=== PATIENT | female | born 1995 | race Caucasian/White ===

== ENCOUNTER 2016-12-02 16:57 | Emergency (ER) | payer OTHER ==
[~2016-12-02] VITALS: Ht 180.3 cm; Wt 99.8 kg
--- NOTE | 2016-12-02 17:08 | ED PSYCHIATRIC COMPLAINT ---
History of Present Illness General Chief Complaint: Psychiatric Related Complaint Stated Complaint: +SI, DETOX FROM HEROINE/BENZO/CRACK Source: patient Exam Limitations: no limitations Vital Signs & Intake/Output Vital Signs & Intake/Output Vital Signs Date Time Temp Pulse Resp B/P B/P Pulse O2 O2 Flow FiO2 Mean Ox Delivery Rate 12/03 1001 97.0 88 20 109/49 Room Air 12/03 0643 96.4 62 18 102/49 99 Room Air 12/03 0137 96.5 87 18 127/65 97 Room Air 12/02 2238 96.7 89 18 140/68 98 Room Air 12/02 1939 84 137/69 12/02 1702 96.1 93 20 135/69 100 Room Air ED Intake and Output 12/03 0000 12/02 1200 Intake Total Output Total 1 Balance -1 Output, Urine 1 Patient 220 lb Weight Weight Estimated Measurement Method Allergies Coded Allergies: No Known Allergies (12/02/16) Reconcile Medications Alprazolam 1 MG TABLET 1 TAB PO TIDPRN ANXIETY (Reported) Estradiol 2 MG TABLET 1 TAB PO TID MENTAL HEALTH (Reported) Fluoxetine HCl (Prozac) 10 MG CAPSULE 3 CAP PO DAILY MENTAL HEALTH (Reported) Leuprolide Acetate (Lupron Depot) 11.25 MG SYRINGEKIT 1 IM EVERY 3 MONTHS CONTROL (Reported) Triage Note: PT TO ED REQUESTING DETOX FROM HEROIN, CRACK AND XANAX. LAST USE OF HEROIN WAS LAST NIGHT, 1 BAG PER PT. TRACK DE LA TORRE NOTED ON B/L ARMS. ADMITS TO OCCASIONAL ETOH USE. STATES SI BY OVERDOSING ON PILLS "OR ANYWAY I CAN ". CALM/COOPERATIVE, FORTH COMING WITH INFORMATION. DENIES HI. Triage Nurses Notes Reviewed? yes Onset: Abrupt Duration: day(s): (FEW) Timing: recent history Severity: mild, moderate Associated Symptoms: anxiety, suicidal ideation : No Patient currently breastfeeds: No HPI: This is a very pleasant 21 year old transgender female with history of recent significant drug abuse who presents to the ED feeling suicidal with plan to overdose on drugs or to hang herself. In the last 6 weeks she has been using lina, crack and xanax. 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 No thoughts of harming anyone else. Denies any alcohol abuse. History of anxiety and depression, on prozac. She is currently living with a girl that she uses with. (DB GARCIA,JLUIS) Past History Travel History Traveled to [place] past 21 day No Medical History Any Pertinent Medical History? see below for history Psychiatric: anxiety, depression, TRANSGENDER Surgical History Surgical History: non-contributory Psychosocial History What is your primary language Nepali Tobacco Use: Current Daily Use Daily Tobacco Use Amount/Type: => 5 Cigarettes daily ETOH Use: occasional use Illicit Drug Use: heroin, benzodiazepines, crack Family History Hx Contributory? No (JLUIS ACE MD) Review of Systems Review of Systems Constitutional: Denies: chills, fever. EENTM: Reports: no symptoms. Respiratory: Denies: cough. Cardiovascular: Denies: chest pain, palpitations. GI: Denies: abdominal pain. Genitourinary: Reports: no symptoms. Musculoskeletal: Reports: no symptoms. Skin: Reports: no symptoms. Neurological/Psychological: Reports: anxiety, depressed, emotional problems. Hematologic/Endocrine: Denies: bruising, bleeding, polyuria, polydipsia. Immunologic/Allergic: Reports: no symptoms. All Other Systems: Reviewed and Negative (JLUIS ACE MD) Physical Exam Physical Exam General Appearance: well developed/nourished, alert, awake, anxious, mild distress Head: atraumatic, normal appearance Eyes: Bilateral: normal appearance, PERRL, EOMI. Ears, Nose, Throat: normal pharynx, hearing grossly normal Neck: normal inspection, supple, full range of motion Respiratory: normal breath sounds, chest non-tender, no respiratory distress Cardiovascular: regular rate/rhythm Neurological/Psychiatric: no motor/sensory deficits, awake, alert, anxious Appearance/Memory/Insight: appropriate insight, disheveled Behavoir/Eye Contact/Speech: cooperative, good eye contact Thoughts/Hallucinations: no apparent hallucination SAD PERSONS SAD PERSONS Response Value Depression/Hopelessness? yes 2 Previous Attempts/Psych Care yes 1 Excessive Ethanol/Drug Use? yes 1 Rational Thinking Loss? yes 2 Single//? yes 1 Organized/Serious Attempt yes 2 Social Support? has no support 1 Stated Future Intent? yes 2 Total 12 SAD PERSONS Done? yes (JLUIS ACE MD) Progress Differential Diagnosis: POLYSUBSTANCE DRUG ABUSE, SUICIDAL IDEATION, DEPRESSION, ANXIETY Plan of Care: Orders Procedure Date/time Status Regular Diet 05/11 B Active Add-on Test (ER Only) 12/03 1739 Active HIV (Reflex to HIVCQ) 12/02 174 Complete HEPATITIS PANEL 12/03 1739 Complete Continuous Observation Monitor 12/02 173 Active HUMAN BETA HCG SCREEN 12/03 1707 Complete COMPREHENSIVE METABOLIC PANEL 12/03 1707 Complete CBC WITHOUT DIFFERENTIAL 12/03 1707 Complete URINE DRUGS OF ABUSE 12/02 1706 Complete ED CRISIS PSYCH CONSULT 12/02 1706 Active Current Medications Sig/Jostin Start time Last Medication Dose Stop Time Status Admin Divalproex Sodium 1,000 MG BID 12/02 2199 CAN (Depakote) Estradiol 2 MG TID 12/02 2199 UNVr 12/03 (Estrace) 1003 Ibuprofen 800 MG Q6P PRN 12/02 1929 AC 12/03 (Motrin) 120 Ondansetron HCl 4 MG Q4-6 PRN PRN 12/02 1929 AC 12/03 (Zofran) 1206 Laboratory Tests 12/02/16 1741: Urine Opiates Screen > 4000.00 H, Methadone Screen > 735 H, Barbiturate Screen 61, Ur Phencyclidine Scrn < 6.00, Amphetamines Screen < 100, U Benzodiazepines Scrn 331 H, Urine Cocaine Screen > 1000 H, Urine Cannabis Screen > 80.00 H 12/02/161739: Anion Gap 13, Estimated GFR > 60, BUN/Creatinine Ratio 8.9, Glucose 89, Calcium 9.5, Total Bilirubin 0.5, AST 17, ALT 34, Alkaline Phosphatase 74, Total Protein 8.9 H, Albumin 4.3, Globulin 4.6 H, Albumin/Globulin Ratio 0.9 L, Total Beta HCG NEGATIVE, CBC w Diff NO MAN DIFF REQ, RBC 4.69, MCV 78.3 L, MCH 26.5 L, RDW 14.2, MPV 9.6, Gran % 52.7, Lymphocytes % 32.8, Monocytes % 8.4, Eosinophils % 5.6 H, Basophils % 0.5, Absolute Granulocytes 3.3, Absolute Lymphocytes 2.1, Absolute Monocytes 0.5, Absolute Eosinophils 0.4, Absolute Basophils 0, PUBS MCHC 33.8, Hepatitis A IgM Ab NONREACTIVE, Hep Bs Antigen NONREACTIVE, Hep B Core IgM Ab Conf NONREACTIVE, Hepatitis C Antibody NONREACTIVE, HIV 1&2 Ab Western Blot NONREACTIVE 05/10/17 1707: Urine Test Cancelled Hand-Off Endorsed To: JUSTIN GARCIA,RENE Marrero Endorsed Time: 2300 Pending: consult (CRISIS INPATIENT BED) (JLUIS ACE MD) Hand-Off Endorsed To: TRIXIE GARCIA,KIRK Clifton Endorsed Time: 0700 Pending: consult (JUSTIN GARCIA,RENE Marrero) Comments: 12/03/2016 2:05:09 PM patient signed out to 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 Patient is being transferred to the [facility] for care. (TRIXIE GARCIA,KIRK Clifton) Departure Departure Disposition: STILL A PATIENT Condition: Stable Clinical Impression Primary Impression: Polysubstance abuse Departure Forms: Customer Survey General Discharge Information (JLUIS ACE MD)
[2016-12-02] MEDS ORDERED: ESTRADIOL2 M1 PO (17:47)
[2016-12-02] MEDS ORDERED: ALPRAZOLAM1 M2 PO (17:47)
[2016-12-02] MEDS ORDERED: LUPRON DEPOT11.25 M2 IM (17:49)
[2016-12-02] MEDS ORDERED: PROZAC10 M1 PO (17:50)
[2016-12-02 17:54] LABS: ABSOLUTE BASOPHIL COUNT 0 /CUMM (0.0-0.2); ABSOLUTE EOSINOPHIL COUNT 0.4 /CUMM (0.0-0.7); ABSOLUTE GRANULOCYTE CT 3.3 /CUMM (1.4-6.5); ABSOLUTE LYMPH COUNT 2.1 /CUMM (1.2-3.4); ABSOLUTE MONOCYTE COUNT 0.5 /CUMM (0.10-0.60); BASOPHIL % 0.5 % (0.0-2.0); EOSINOPHIL % 5.6 % (0-5); GRANULOCYTE % 52.7 % (42.2-75.2); HEMATOCRIT 36.7 % (37-47); MEAN CORPUSCULAR HGB 26.5 PG (27.0-31.0); MEAN CORPUSCULAR HGB CONC 33.8 G/DL (33.0-37.0); MEAN CORPUSCULAR VOLUME 78.3 FL (81.0-99.0); MEAN PLATELET VOLUME 9.6 FL (7.4-10.4); PLATELET COUNT 253 /CUMM (130-400); RBC DISTRIBUTION WIDTH 14.2 % (11.5-14.5); RED BLOOD CELL CT 4.69 /CUMM (4.20-5.40); WHITE BLOOD CELL COUNT 6.3 /CUMM (4.8-10.8)
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
[2016-12-03 14:20] VITALS: BP 114/72
== END 2016-12-03 16:44 | disposition other institution (70) ==
LOC: ERH 16:57
PROVIDERS: Emergency Medicine
DX: F11.10 Opioid abuse, uncomplicated (principal); F14.10 Cocaine abuse, uncomplicated; F13.10 Sedative, hypnotic or anxiolytic abuse, uncomplicated; F17.210 Nicotine dependence, cigarettes, uncomplicated
CPT/HCPCS: 80307; 81025; 87389; G0463; J3101

== ENCOUNTER 2017-08-18 12:41 | Inpatient (IN) | payer OTHER ==
[~2017-08-18] VITALS: Ht 182.9 cm; Wt 88.5 kg
[~2017-08-18 12:41] MED LIST: ALPRAZOLAM1 M2 PO; ESTRADIOL2 M1 PO; LUPRON DEPOT11.25 M2 IM; PROZAC10 M1 PO
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
[2017-08-18 14:20] LABS: ABSOLUTE BASOPHIL COUNT 0 /CUMM (0.0-0.2); ABSOLUTE EOSINOPHIL COUNT 0.1 /CUMM (0.0-0.7); ABSOLUTE GRANULOCYTE CT 5.8 /CUMM (1.4-6.5); ABSOLUTE MONOCYTE COUNT 0.5 /CUMM (0.10-0.60); BASOPHIL % 0.1 % (0.0-2.0); EOSINOPHIL % 0.7 % (0-5); MEAN CORPUSCULAR HGB 28.2 PG (27.0-31.0); MEAN CORPUSCULAR HGB CONC 33.7 G/DL (33.0-37.0); MEAN CORPUSCULAR VOLUME 83.8 FL (81.0-99.0); MEAN PLATELET VOLUME 8.9 FL (7.4-10.4); PLATELET COUNT 254 /CUMM (130-400); RBC DISTRIBUTION WIDTH 12.3 % (11.5-14.5); RED BLOOD CELL CT 4.66 /CUMM (4.20-5.40); WHITE BLOOD CELL COUNT 7.4 /CUMM (4.8-10.8)
[2017-08-18 14:22] LABS: GRANULOCYTE % 79.1 % (42.2-75.2)
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
[2017-08-18] MEDS ORDERED: FLUOXETINE HCL40 M1 PO (19:31)
[2017-08-18] MEDS ORDERED: CLONIDINE HCL0.1 MG PO (19:32)
[2017-08-18] MEDS ORDERED: PROGESTERONE100 M2 PO (19:32)
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
[2017-08-19 13:32] VITALS: BP 124/54
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
[2017-08-19 15:43] VITALS: BP 112/55
--- NOTE | 2017-08-19 18:00 | Cons- Endocrinology ---
General Information and HPI Consulting Request Date of Consult: 08/19/17 Requested By: Conor Hoffmann MD Reason for Consult: Abnormal thyroid tests Source of Information: patient, old records Exam Limitations: no limitations History of Present Illness: This 22-year-old woman came to the emergency room because of suicidal ideation. She apparently has a history of polysubstance abuse. The patient had a mildly suppressed TSH. In speaking with the patient she has never been told of a thyroid problem before. She does see and identifies herself as a transgender woman. She states that she is transitioning for the past 2 years. She does receive Lupron once every 3 months and is cycled on estrogen and progesterone. Allergies/Medications Allergies: Coded Allergies: No Known Allergies (12/02/16) Home Med List: Clonidine HCl 0.1 MG TABLET 1 TAB PO QPM ANXIETY (Reported) Estradiol 2 MG TABLET 1 TAB PO TID HRT (Reported) Fluoxetine HCl 40 MG CAPSULE 1 CAP PO DAILY MENTAL HEALTH (Reported) Leuprolide Acetate (Lupron Depot) (Unknown Strength) SYRINGEKIT (Unknown Dose) IM EVERY 3 MONTHS HRT (Reported) Progesterone,Micronized (Progesterone) (Unknown Strength) CAPSULE (Unknown Dose) PO QPM HRT (Reported) Current Medications: Current Medications Sig/Jostin Start time Last Medication Dose Route Stop Time Status Admin Acetaminophen 650 MG Q6P PRN 08/18 1545 AC PO Al Hydroxide/Mg 30 ML Q4-6 PRN PRN 08/18 1545 AC Hydroxide PO Baclofen 10 MG Q6P PRN 08/19 1100 AC PO Benztropine Mesylate 1 MG Q6P PRN 08/19 1100 AC PO Benztropine Mesylate 1 MG Q6P PRN 08/19 1100 AC IM Clonazepam 1 MG QPM PRN 08/18 1330 DC PO 08/25 1329 Clonidine 0.1 MG TID 08/19 1600 CAN PO Clonidine 0 .STK-MED ONE 08/18 1828 DC PO Clonidine 0.1 MG FOUR TIMES A DAY 08/18 1800 DC 08/19 PO 0927 Clonidine 0.1 MG Q6-PRN PRN 08/18 1545 AC PO Dicyclomine HCl 20 MG Q6P PRN 08/19 1100 AC PO Estradiol 2 MG TID 08/18 1600 AC 08/19 PO 1641 Fluoxetine HCl 40 MG DAILY 08/18 1316 AC 08/19 PO 0927 Gabapentin 300 MG Q6P PRN 08/19 1215 DC PO Haloperidol 5 MG Q6P PRN 08/19 1100 AC PO Haloperidol 5 MG Q6P PRN 08/19 1100 AC IM Hydroxyzine HCl 50 MG Q6-PRN PRN 08/18 1545 DC PO Ibuprofen 600 MG Q6P PRN 08/18 1545 DC PO Influenza Virus 0.5 ML ONCE ONE 08/19 1415 DC 08/19 Vaccine IM 08/19 1416 1711 Loperamide HCl 2 MG Q3P PRN 08/18 1545 AC PO Lorazepam 1.5 MG AT BEDTIME 08/19 2200 AC PO Lorazepam 1 MG Q6P PRN 08/19 1500 AC 08/19 PO 1759 Lorazepam 2 MG Q6P PRN 08/19 1100 AC IM Magnesium Hydroxide 30 ML AT BEDTIME PRN 08/18 1545 AC PO Methadone HCl 25 MG 8AM 08/20 0800 AC PO Methadone HCl 30 MG ONCE ONE 08/19 1500 DC 08/19 PO 08/19 1501 1643 Methocarbamol 500 MG Q6-PRN PRN 08/18 1545 DC PO Nicotine 2 MG Q2P PRN 08/19 1515 AC 08/19 PO 1751 Nicotine 14 MG DAILY 08/19 1506 AC 08/19 TOP 1644 Progesterone 200 MG AT BEDTIME 08/19 2200 AC PO Topiramate 50 MG BID 08/19 2200 CAN PO Topiramate 25 MG BID 08/19 2200 AC PO Topiramate 50 MG BID 08/18 1316 DC 08/19 PO 0927 Trazodone HCl 50 MG AT BEDTIME PRN 08/18 1545 DC PO Review of Systems Review of Systems Constitutional: Reports: no symptoms (feels anxious). Cardiovascular: Denies: chest pain. Respiratory: Denies: short of breath. GI: Denies: nausea, vomiting. Musculoskeletal: Denies: joint swelling. Skin: Reports: no symptoms. Neurological/Psychological: Reports: dementia. 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 Home ETOH Use: denies use Illicit Drug Use: cocaine, heroin Exam & Diagnostic Data Last 24 Hrs of Vital Signs/I&O Vital Signs Date Time Temp Pulse Resp B/P B/P Pulse O2 O2 Flow FiO2 Mean Ox Delivery Rate 08/19 1543 76 112/55 08/19 1332 96.9 57 124/54 08/19 1225 98.0 59 18 113/59 100 Room Air 08/19 0927 98.0 109 18 119/58 08/19 0825 98.0 109 18 119/58 98 Room Air 08/19 0635 98.2 76 18 107/62 100 Room Air 08/19 0534 98.1 73 18 122/61 97 Room Air 08/19 0234 98.4 83 18 116/54 97 Room Air 08/19 0029 98.9 72 18 104/55 98 Room Air 08/18 2133 98.6 90 20 113/61 08/18 2111 98.6 90 20 113/61 98 Room Air 08/18 192 98.7 92 20 112/61 99 Room Air 08/18 1829 99.0 94 20 139/65 Intake & Output 08/19 1600 08/19 0808/19 0000 Intake Total Output Total Balance Patient 195 lb Weight Vital Signs Date Time Temp Pulse Resp B/P B/P Pulse O2 O2 Flow FiO2 Mean Ox Delivery Rate 08/19 1543 76 112/55 08/19 1332 96.9 57 124/54 08/19 1225 98.0 59 18 113/59 100 Room Air 08/19 0927 98.0 109 18 119/58 08/19 0825 98.0 109 18 119/58 98 Room Air 08/19 0635 98.2 76 18 107/62 100 Room Air 08/19 0534 98.1 73 18 122/61 97 Room Air 08/19 0234 98.4 83 18 116/54 97 Room Air 08/19 0029 98.9 72 18 104/55 98 Room Air 08/184 98.6 90 20 113/61 08/18 2111 98.6 90 20 113/61 98 Room Air 08/18 1922 98.7 92 20 112/61 99 Room Air 08/18 1829 99.0 94 20 139/65 Intake & Output 08/19 1600 01/25 0800 08/19 0000 Intake Total Output Total Balance Patient 195 lb Weight Physical Exam General Appearance: alert, awake, anxious Head: normal appearance Eyes: Bilateral: normal appearance. Neck: normal inspection, thyroid not enlarged Respiratory: normal breath sounds Cardiovascular: regular rate/rhythm Gastrointestinal: normal bowel sounds, soft Extremities: normal inspection Labs/[place] Results: Laboratory Tests 08/18 1403 Toxicology Urine Opiates Screen (>2000 NG/ML) 3131.00 H Methadone Screen (>300 NG/ML) < 40 Barbiturate Screen (>200 NG/ML) < 60 Ur Phencyclidine Scrn (>25 NG/ML) < 6.00 Amphetamines Screen (>1000 NG/ML) < 100 U Benzodiazepines Scrn (>200 NG/ML) < 85 Urine Cocaine Screen (>300 NG/ML) 810 H Urine Cannabis Screen (>50 NG/ML) < 5.00 Urines Urine Color (YEL,AMB,STR) YEL Urine Clarity (CLEAR) CLEAR Urine pH (5.0 - 8.0) 6.5 Ur Specific [place] (1.001 - 1.035) 1.010 Urine Protein (NEG,<30 MG/DL) NEG Urine Ketones (NEG) NEG Urine Nitrite (NEG) NEG Urine Bilirubin (NEG) NEG Urine Urobilinogen (0.1 - 1.0 EU/dl) 4.0 H Ur Leukocyte Esterase (NEG) NEG Ur Microscopic EXAM NOT REQUIRED Urine Hemoglobin (NEG) NEG Urine Glucose (N MG/DL) NEG 08/18 08/18 1355 1315 Chemistry Sodium (137 - 145 mmol/L) 144 Potassium (3.5 - 5.1 mmol/L) 3.5 Chloride (98 - 107 mmol/L) 106 Carbon Dioxide (22 - 30 mmol/L) 23 Anion Gap (5 - 16) 15 BUN (7 - 17 mg/dL) 10 Creatinine (0.5 - 1.0 mg/dL) 0.7 Estimated GFR (>60 ml/min) > 60 BUN/Creatinine Ratio (7 - 25 %) 14.3 Glucose (65 - 99 mg/dL) 101 H Calcium (8.4 - 10.2 mg/dL) 9.4 Total Bilirubin (0.2 - 1.3 mg/dL) 0.4 AST (14 - 36 U/L) 17 ALT (9 - 52 U/L) 31 Alkaline Phosphatase (<127 U/L) 72 Total Protein (6.3 - 8.2 g/dL) 7.7 Albumin (3.5 - 5.0 g/dL) 4.0 Globulin (1.9 - 4.2 gm/dL) 3.7 Albumin/Globulin Ratio (1.1 - 2.2 %) 1.1 Free T4 (0.79 - 2.35 ng/dL) 1.37 Total T3 (0.97 - 1.69 ng/mL) 1.05 TSH &T3 &Free T4 Intrp (0.270 - 4.20 uIU/mL) 0.101 L Hematology CBC w Diff NO MAN DIFF REQ WBC (4.8 - 10.8 /CUMM) 7.4 RBC (4.20 - 5.40 /CUMM) 4.66 Hgb (12.0 - 16.0 G/DL) 13.1 Hct (37 - 47 %) 39.0 MCV (81.0 - 99.0 FL) 83.8 MCH (27.0 - 31.0 PG) 28.2 MCHC (33.0 - 37.0 G/DL) 33.7 RDW (11.5 - 14.5 %) 12.3 Plt Count (130 - 400 /CUMM) 254 MPV (7.4 - 10.4 FL) 8.9 Gran % (42.2 - 75.2 %) 79.1 H Lymphocytes % (20.5 - 51.1 %) 13.3 L Monocytes % (1.7 - 9.3 %) 6.8 Eosinophils % (0 - 5 %) 0.7 Basophils % (0.0 - 2.0 %) 0.1 Absolute Granulocytes (1.4 - 6.5 /CUMM) 5.8 Absolute Lymphocytes (1.2 - 3.4 /CUMM) 1.0 L Absolute Monocytes (0.10 - 0.60 /CUMM) 0.5 Absolute Eosinophils (0.0 - 0.7 /CUMM) 0.1 Absolute Basophils (0.0 - 0.2 /CUMM) 0 Serology Hepatitis A IgM Ab (NONREACTIVE) NONREACTIVE Cancelled Hep Bs Antigen (NONREACTIVE) NONREACTIVE Cancelled Hep B Core IgM Ab Conf (NONREACTIVE) NONREACTIVE Cancelled Hepatitis C Antibody (NONREACTIVE) NONREACTIVE Cancelled HIV 1&2 Ab Western Blot (NONREACTIVE) NONREACTIVE Cancelled Toxicology Serum Alcohol (<10 MG/DL) < 10.0 Assessment/Plan Assessment/Plan This 22-year-old transgender female presents with a suppressed TSH after using cocaine and heroin. During cocaine addiction the hypothalamic pituitary axis is felt to be affected with a blunted response of TSH to thyroid releasing hormone. In addition opioids can also suppress the hypothalamic pituitary thyroid axis. This could result in a suppressed TSH. The patient's free T4 and total T3 are in the normal range. I would suggest repeating the patient's thyroid function tests tomorrow and we will also obtain thyroid antibodies including anti-TPO antithyroglobulin and thyroid-stimulating immunoglobulin. Consult Acknowledgment - Thank you for your consult request.
[2017-08-19 19:57] VITALS: BP 124/62
[2017-08-20 07:59] VITALS: BP 129/67
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
[2017-08-20 12:04] VITALS: BP 117/64
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
[2017-08-20 15:42] VITALS: BP 141/67
[2017-08-20 19:47] VITALS: BP 134/73
[2017-08-21 07:43] VITALS: BP 114/73
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
[2017-08-21 12:07] VITALS: BP 119/65
[2017-08-21 16:55] VITALS: BP 137/75
[2017-08-21 20:07] VITALS: BP 127/68
[2017-08-22 07:41] VITALS: BP 135/62
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
[2017-08-22 12:09] VITALS: BP 130/56
[2017-08-22 15:48] VITALS: BP 130/62
[2017-08-22 19:46] VITALS: BP 133/62
[2017-08-23 07:38] VITALS: BP 128/64
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
[2017-08-23 12:24] VITALS: BP 124/60
[2017-08-23 16:05] VITALS: BP 131/65
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
[2017-08-23 19:47] VITALS: BP 132/68
[2017-08-24 07:52] VITALS: BP 118/63
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
[2017-08-24 12:21] VITALS: BP 128/62
--- NOTE | 2017-08-24 13:15 | SOCIAL WORKER PROG NOTE PSYCH ---
See Addendum Social Work Progress Note Progress Note Federica reported that she had a nice conversation on the phone last night with her Mom. She feels better about how things were left yesterday now that they talked. Talked about a referral to [facility] while she waits to get into rehab. She was open to sending a referral, but stated she would prefer [facility] since she has been to the [facility] program a couple of times. She was still open to me submitting to [facility] as well. She is scared to take a bed at [facility] right now if one were to come available immediately. She stated she doesn't know how she would do in a less restricted environment. She reported there being too much freedom. Federica had a phone screening with [facility] this morning at 11am. Rhonda in admissions stated the team would review the information and get back to me by tomorrow afternoon regarding whether or not she would be placed on the wait list. If she went there [facility] would have to approve her for a 3.3 level of care. I also placed a call to [facility] and left a message asking for a screening to be scheduled. Federica was open to me submitting a referral for her to [facility] in [place].
[2017-08-24 15:47] VITALS: BP 138/62
[2017-08-24 20:08] VITALS: BP 143/75
[2017-08-25 07:59] VITALS: BP 121/77
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
[2017-08-25 12:12] VITALS: BP 140/67
--- NOTE | 2017-08-25 14:05 | SOCIAL WORKER PROG NOTE PSYCH ---
Social Work Progress Note Progress Note Federica was in her room resting this afternoon. She did get up when prompted to meet. She reports feeling tired today, due to not sleeping well last night. She said she is having a better day today mentally, but she feels physically exhausted. Yesterday was her last dose of Methadone. She has a rash on her left hand. She isn't sure what it is from, but reports she is getting some cream for it. She reported that she was doing some journaling and writing down some of her strengths. When asked what she wrote? She said "I like my hair, I' m smart, and I'm creative." Encouraged her to add to this list daily. Reported having contact with some friends recently. Her friend Solis came to see her here. Discussed referrals to rehab. Reported that I had made contact with [facility] and they have her referral and will screen her when they get through their list. Right now they are admitting people at the end of August. Encouraged her to call [facility] and set up a screening. I also shared that I called [facility] this morning and this afternoon to see if a bed would be opening, but haven't heard back from the wedding coordinator. Encouraged her to call tomorrow to continue to express her interest. [facility] was also called to see if they would screen Federica, but we were told they would call when available.
[2017-08-25 16:04] VITALS: BP 117/68
[2017-08-25 19:41] VITALS: BP 139/57
[2017-08-26 08:36] VITALS: BP 112/65
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
[2017-08-26] MEDS ORDERED: GABAPENTIN400 M2 PO ×2 (12:22)
[2017-08-26] MEDS ORDERED: NICOTINE PATCH1 EAC2 TOP (12:22)
[2017-08-26] MEDS ORDERED: PROMETRIUM100 MG PO (12:22)
[2017-08-26] MEDS ORDERED: HYDROCORTISO28.35 GM EXT (12:22)
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
[2017-08-26] MEDS ORDERED: FLUOXETINE HCL20 M2 PO (12:43)
--- NOTE | 2017-08-26 13:24 | SOCIAL WORKER PROG NOTE PSYCH ---
Social Work Progress Note Progress Note Federica asked if I had any news from [facility]. I told her she was not accepted due to them recommending more of a co-occurring program right now. We reviewed her current referrals and talked about following up with [facility]. She said mood was she was doing okay. She got a little emotional in groups because she was talking about things and then got overwhelmed and stepped out. We talked about her continued journaling and adding to her strengths. She said she was doing that. A short time later a call was received from Suzy at [facility]. Suzy reported that they have a bed for her today if she was willing to accept it. Federica got on the phone with Suzy and did accept the bed. A 30 day supply of medications would need to be called into [facility] in [place]. Federica called her Mom and reported that a bed was open for her at [facility]. She asked if her Mom could transport her there, but she could not. I called [employer] and scheduled transportation. Her ride arrived around 12: 45pm. Federica was thankful and appreciative for the help. Wished her well.
--- NOTE | 2017-08-26 13:25 | SOCIAL WORKER PROG NOTE PSYCH ---
Social Work Progress Note Faxed Referral(s) Referred To: [facility] of [facility] Documents sent: Health Summary Faxed to: [facility] Fax #: [phone] Faxed by: Nilam Vega Date faxed: 08/26/17 Time Faxed: [phone]
== END 2017-08-26 12:54 | DRG 754 ==
LOC: ERH 12:41 → CP SOUTH 08-19 10:53 → ERHI 08-19 10:53 → ENRESERV 08-19 11:58 → ENTRNSPT 08-19 13:13 → EDTRNSPT 08-19 13:16 → EDTRNSPTSTS 08-19 13:16 → CP SOUTH 08-19 13:21 → CMPTRNSPT 08-19 13:23 → CP SOUTH 08-19 13:24
PROVIDERS: Physician Assistant Medical
DX: F32.9 Major depressive disorder, single episode, unspecified (principal); F11.90 Opioid use, unspecified, uncomplicated; F14.90 Cocaine use, unspecified, uncomplicated
CPT/HCPCS: 36415; 80307; 81003; 81025; 86376; 86800; 87389; 93005; 93010; G0463; G0480; J3490; Q2036

== ENCOUNTER 2017-12-21 03:17 | Emergency (ER) | payer OTHER ==
[~2017-12-21 03:17] MED LIST changes: +CLONIDINE HCL0.1 MG PO; +FLUOXETINE HCL20 M2 PO; +FLUOXETINE HCL40 M1 PO; +GABAPENTIN400 M2 PO; +HYDROCORTISO28.35 GM EXT; +NICOTINE PATCH1 EAC2 TOP; +PROGESTERONE100 M2 PO; +PROMETRIUM100 MG PO
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
[2017-12-21 04:09] LABS: ABSOLUTE BASOPHIL COUNT 0 /CUMM (0.0-0.2); ABSOLUTE EOSINOPHIL COUNT 0.3 /CUMM (0.0-0.7); ABSOLUTE GRANULOCYTE CT 6.7 /CUMM (1.4-6.5); ABSOLUTE LYMPH COUNT 4.8 /CUMM (1.2-3.4); ABSOLUTE MONOCYTE COUNT 1.7 /CUMM (0.10-0.60); BASOPHIL % 0.1 % (0.0-2.0); EOSINOPHIL % 1.9 % (0-5); GRANULOCYTE % 49.7 % (42.2-75.2); MEAN CORPUSCULAR HGB 28.4 PG (27.0-31.0); MEAN CORPUSCULAR HGB CONC 33.5 G/DL (33.0-37.0); MEAN CORPUSCULAR VOLUME 84.7 FL (81.0-99.0); MEAN PLATELET VOLUME 10.3 FL (7.4-10.4); PLATELET COUNT 233 /CUMM (130-400); RBC DISTRIBUTION WIDTH 13.3 % (11.5-14.5); RED BLOOD CELL CT 4.37 /CUMM (4.20-5.40); WHITE BLOOD CELL COUNT 13.4 /CUMM (4.8-10.8)
--- NOTE | 2017-12-21 04:23 | RADIOLOGY REPORT ---
EXAMINATION: XR PORTABLE CHEST CLINICAL INFORMATION: Chest pain COMPARISON: None TECHNIQUE: Portable frontal view of the chest was obtained. FINDINGS: Cardiac leads overlie the chest. The lungs are well expanded. There is no focal consolidation, edema, or effusion. No pneumothorax. The cardiomediastinal silhouette is within normal limits. No acute osseous abnormality. IMPRESSION: No acute pulmonary findings.
[2017-12-21] MEDS ORDERED: TRUVADA 200 MG1 EACH PO (04:43)
[2017-12-21] MEDS ORDERED: ISENTRESS400 M1 PO (04:43)
[2017-12-21] MEDS ORDERED: LOTRIMIN AF12 GM TOP (05:00)
--- NOTE | 2017-12-21 06:12 | CT SCAN REPORT ---
EXAMINATION: CT ANGIOGRAM OF THE CHEST WITH AND WITHOUT CONTRAST (CT PULMONARY ANGIOGRAM FOR PE) CLINICAL INFORMATION: Dyspnea. Hypoxia. COMPARISON: Radiograph from earlier today TECHNIQUE: Prior to contrast administration, noncontrast localization images were obtained. Subsequently, multidetector volumetric imaging was performed from the thoracic inlet to below the diaphragms following the administration of 75 mL Optiray 320 intravenous contrast. No contrast reaction reported. Sagittal, coronal, and MIP oblique sagittal reformatted images were obtained on the CT workstation, uploaded to PACS, and reviewed. Total exam dose-length product 576 mGy-cm. FINDINGS: QUALITY OF STUDY/CONTRAST BOLUS: Satisfactory PULMONARY ARTERIES: No central or segmental pulmonary emboli. THORACIC AORTA: No aneurysm or dissection. LUNG: The central airways are patent. There is no consolidation. Pleural-based 0.5 cm left lower lobe nodule. PLEURA: No pleural effusion or pneumothorax. MEDIASTINUM: Normal heart size. No pericardial effusion. No hilar or mediastinal lymphadenopathy. No evidence of septal bowing or right heart strain. CHEST WALL/AXILLA: No axillary or internal mammary lymphadenopathy. OSSEOUS STRUCTURES: No acute or suspicious osseous abnormality. UPPER ABDOMEN: Unremarkable. No reflux of contrast into the hepatic veins to suggest elevated right heart pressures. IMPRESSION: No pulmonary embolism or other acute intrathoracic abnormality. VTE: negative
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
[2017-12-22 18:14] VITALS: BP 123/72
== END 2017-12-22 18:36 | disposition short-term general hospital (02) ==
LOC: ERH 03:17
PROVIDERS: Pediatrics
DX: R45.851 Suicidal ideations (principal); F14.10 Cocaine abuse, uncomplicated; F11.10 Opioid abuse, uncomplicated; B37.9 Candidiasis, unspecified; R46.89 Other symptoms and signs involving appearance and behavior
CPT/HCPCS: 87070; 71045; 80307; 81001; 86803; 87040; 87086; 87389; 87491; 87591; 93005; 93010; 96372; 96374; G0463; G0480; J0696; J2310; J3101